=== PATIENT | female | born 1940 | race Caucasian/White ===

== ENCOUNTER 2025-03-07 19:17 | Emergency (ER) | payer MEDICARE, OTHER ==
[2025-03-07 20:43] LABS: Anion Gap 18 mmol/L (10-20); BUN (Urea Nitrogen) 26 mg/dL (9.8-20.1); Calc. Creatinine Clearance 0 mL/min (70-130); Calcium 9.5 mg/dL (7.8-10.44); Carbon Dioxide 20 mmol/L (23-31); Chloride 106 mmol/L (98-107); Estimated GFR 48; Glucose 214 mg/dL (83-110); Potassium 3.3 mmol/L (3.5-5.1); Sodium 141 mmol/L (136-145)
== END 2025-03-07 21:12 | disposition home or self-care (01) ==
LOC: CSHERS 19:17
DX: T67.1XXA Heat syncope, initial encounter (principal); I10 Essential (primary) hypertension; E03.9 Hypothyroidism, unspecified; E78.5 Hyperlipidemia, unspecified; Z79.899 Other long term (current) drug therapy; X58.XXXA Exposure to other specified factors, initial encounter
CPT/HCPCS: 80048; 93005; 96360